=== PATIENT | female | born 1970 ===

== ENCOUNTER 2018-05-11 17:11 | Inpatient (IN) ==
[2018-05-11 21:13] LABS: Risk Ratio 2.25; Thyroid Stimulating Hormone 2.17 uIU/ml (0.358-3.74); VLDL CHOLESTEROL 20.8 MG/DL
[2018-05-11 21:36] LABS: Osmolality,Calculated 303.8 MOS/KG (273-304)
[2018-05-11 21:37] LABS: Potassium 6.9 MMOL/L (3.5-5.1)
[2018-05-12 04:35] LABS: Basophils # 0.1 10*3/uL (0.0-0.2); Basophils % 0.5 % (0.0-0.8); Eosinophils % 0.4 % (0.00-10.9); Hematocrit 31.3 VOL% (35.7-47.0); Hemoglobin 10.6 GM/DL (12.0-16.0); Immature Granulocytes % 0.7 %; Immature Granulocytes Absolute 0.07 #; Lymphocytes # 1.1 10*3/uL (1.4-4.0); Lymphocytes % 10.2 % (21.3-54.2); Mean Corpuscular HGB Conc 33.9 GM/DL (32-36); Mean Corpuscular Hemoglobin 32 PG (27-34); Mean Corpuscular Volume 93.7 FL (87-102); Mean Platelet Volume 9.8 FL (9.6-12.0); Monocytes # 0.5 10*3/uL (0.11-0.8); Neutrophils # 8.6 10*3/uL (1.4-7.4); Neutrophils % 83.2 % (38.7-73.9); Platelet Count 266 T/CUMM (130-400); Red Blood Count 3.34 MC/CUMM (3.8-5.5); White Blood Count 10.3 T/CUMM (4-12)
[2018-05-12 04:52] LABS: Calcium 8.2 MG/DL (8.5-10.1); Osmolality,Calculated 306.7 MOS/KG (273-304)
[2018-05-12 05:05] LABS: Potassium 6.1 MMOL/L (3.5-5.1)
[2018-05-12 14:01] LABS: Apearance,Urine CLEAR (Clear); Bacteria,Urine Occasional /HPF (Few); Bilirubin,Urine Negative (Negative); Blood, Urine Small mg/dL (Negative); Glucose,Urine (UA) >=500 mg/dL (Negative); Ketones,Urine Negative (Negative); Mucus,Urine Occasional /LPF (Occasional); Nitrite,Urine Negative (Negative); Protein,Urine 100 MG/DL; RBC,Urine 2 /HPF (0-4); Squamous Epithelial Cell,Urine Occasional /HPF (0-10); Urine Color Straw (Yellow); Urine Specific Gravity 1.005 (1.001-1.035); Urine Urobilinogen < 2.0 EU/DL (0.2-1.0); WBC,Urine 13 /HPF (0-6)
[2018-05-12 20:53] LABS: Creatinine 24 Hr Urine Result 2.47 G/24HR (0.60-1.80)
[2018-05-12 20:54] LABS: Collection Time,Urine 24 HOURS; Sodium 24 Hr Ur Result 911 MMOL/L (40-220); Total Protein 24 Hr Ur Result 6283 MG/24HR (0-149.1); Total Volume,Urine 8850 ML (400-2000)
[2018-05-13 04:32] LABS: Calcium 7.9 MG/DL (8.5-10.1); Potassium 3.4 MMOL/L (3.5-5.1)
[2018-05-14 05:08] LABS: Basophils % 0.4 % (0.0-0.8); Eosinophils % 9.6 % (0.00-10.9); Hematocrit 30.2 VOL% (35.7-47.0); Hemoglobin 10.1 GM/DL (12.0-16.0); Immature Granulocytes % 0.5 %; Immature Granulocytes Absolute 0.05 #; Lymphocytes # 1.9 10*3/uL (1.4-4.0); Lymphocytes % 17.9 % (21.3-54.2); Mean Corpuscular HGB Conc 33.4 GM/DL (32-36); Mean Corpuscular Hemoglobin 32 PG (27-34); Mean Corpuscular Volume 95.9 FL (87-102); Mean Platelet Volume 9.5 FL (9.6-12.0); Monocytes # 0.9 10*3/uL (0.11-0.8); Monocytes % 8.3 % (1.7-12.7); Neutrophils # 6.8 10*3/uL (1.4-7.4); Neutrophils % 63.3 % (38.7-73.9); Platelet Count 258 T/CUMM (130-400); Red Blood Count 3.15 MC/CUMM (3.8-5.5); Red Cell Distribution Width 12.5 % (9.3-17.3); White Blood Count 10.8 T/CUMM (4-12)
[2018-05-14 05:33] LABS: Calcium 7.3 MG/DL (8.5-10.1); Osmolality,Calculated 297.4 MOS/KG (273-304); Potassium 2.7 MMOL/L (3.5-5.1)
[2018-05-14 15:34] LABS: Calcium 6.9 MG/DL (8.5-10.1); Osmolality,Calculated 291.8 MOS/KG (273-304); Potassium 3.1 MMOL/L (3.5-5.1)
[2018-05-15 05:29] LABS: Potassium 3.6 MMOL/L (3.5-5.1)
[2018-05-15 12:18] VITALS: BP 145/79
[2018-05-16 16:01] LABS: Total Volume 8850 mL
== END 2018-05-15 18:05 | disposition home or self-care (01) | DRG 683 ==
LOC: N.CC 19:17 → SUATTDRO 19:17 → N.4E 05-13 13:38
PROVIDERS: ADMIT Internal Medicine; ATTEND Internal Medicine